=== PATIENT | male | born 1940 | race African-American/Black ===

== ENCOUNTER 2021-01-25 11:25 | Emergency (ER) | payer OTHER ==
[~2021-01-25] VITALS: Ht 175.3 cm; Wt 91.0 kg
[2021-01-25 12:05] LABS: BASOPHILS % 0.5 % (0.0-2.0); EOSINOPHILS % 0.7 % (0.0-5.0); HEMATOCRIT. 39.1 % (42.0-52.0); HEMOGLOBIN. 13.2 g/dL (14.0-18.0); LYMPHOCYTES % 15.6 % (20.0-50.0); MEAN CORPUSCULAR HEMOGLOBIN 31.1 pg (28.0-32.0); MEAN CORPUSCULAR VOLUME 92.6 fL (80.0-94.0); MEAN PLATELET VOLUME 7.5 fl (7.4-10.4); MONOCYTES % 6.3 % (2.0-8.0); NEUTROPHILS % 76.9 % (40.0-76.0); PLATELET 324 x1000/uL (130-400); RED BLOOD CELL COUNT 4.23 mill/uL (4.7-6.1); RED CELL DISTRIBUTION WIDTH 14.7 % (11.6-14.6)
[2021-01-25 12:14] LABS: CHLORIDE 99 mEq/L (98-107)
[2021-01-25 13:05] VITALS: BP 142/92
[2021-01-25] MEDS ORDERED: ASPIRIN 81MG TABLET PO NR (14:00)
[2021-01-25] MEDS ORDERED: NITROGLYCERIN OINT 1GM/INCH UDPKT TD NR (14:00)
[2021-01-25] MEDS ORDERED: FUROSEMIDE 40MG/4ML VIAL IV NR (14:00)
== END 2021-01-25 16:36 | disposition short-term general hospital (02) ==
LOC: ER 11:25
DX: I50.9 Heart failure, unspecified (principal); R60.1 Generalized edema; Z20.822 Contact with and (suspected) exposure to COVID-19
CPT/HCPCS: 36415; 71045; 80053; 83880; 84484; 85025; 87426; 93005; 96374; 99285; J1940